=== PATIENT | female | born 1990 | race Two or more races ===

== ENCOUNTER 2021-04-09 08:44 | Emergency (ER) | payer OTHER ==
[~2021-04-09] VITALS: Ht 152.4 cm; Wt 112.9 kg
[2021-04-09] MEDS ORDERED: SYNTHROID125 MCG PO (08:53)
[2021-04-09] MEDS ORDERED: CYTOMEL5 MCG (08:54)
== END 2021-04-09 16:22 | disposition home or self-care (01) ==
LOC: ER 08:44
DX: S93.491A Sprain of other ligament of right ankle, initial encounter (principal); X50.1XXA Overexertion from prolonged static or awkward postures, initial encounter; Y93.89 Activity, other specified; Y92.89 Other specified places as the place of occurrence of the external cause; Y99.8 Other external cause status

== ENCOUNTER 2021-09-18 14:03 | Outpatient (CLI) | payer OTHER ==
[~2021-09-18 14:03] MED LIST: CYTOMEL5 MCG; SYNTHROID125 MCG PO
== END 2021-09-18 14:14 | disposition home or self-care (01) ==
LOC: RAD 14:03
PROVIDERS: ATTEND Orthopaedic Surgery
DX: M25.521 Pain in right elbow (principal)

== ENCOUNTER 2021-12-12 05:57 | Day surgery (SDC) | payer OTHER ==
[2021-12-12] MEDS ORDERED: NEXIUM 24HR20 MG PO (09:06)
== END 2021-12-12 10:30 | disposition home or self-care (01) ==
LOC: AMB-ENDOS 05:57
PROVIDERS: ATTEND Surgery
DX: K20.80 Other esophagitis without bleeding (principal); Z20.822 Contact with and (suspected) exposure to COVID-19; I10 Essential (primary) hypertension; J45.909 Unspecified asthma, uncomplicated; E03.9 Hypothyroidism, unspecified

== ENCOUNTER 2023-08-26 09:47 | Day surgery (SDC) | payer OTHER ==
[~2023-08-26 09:47] MED LIST changes: +NEXIUM 24HR20 MG PO; +SYNTHROID175 MCG PO
[2023-08-26] MEDS ORDERED: PERCOCET 5-3251 EACH PO (15:50)
[2023-08-26] MEDS ORDERED: MIRALAX510 GM PO (15:51)
[2023-08-26] MEDS ORDERED: NEURONTIN600 M1 PO (15:51)
[2023-08-26] MEDS ORDERED: TYLENOL325 MG PO (15:51)
[2023-08-26] MEDS ORDERED: CIPRO500 MG PO (15:52)
== END 2023-08-26 18:05 | disposition home or self-care (01) ==
LOC: CIR.AMB 09:47
PROVIDERS: ATTEND Surgery
DX: K80.10 Calculus of gallbladder with chronic cholecystitis without obstruction (principal); K42.9 Umbilical hernia without obstruction or gangrene; K43.2 Incisional hernia without obstruction or gangrene; Z91.013 Allergy to seafood; Z91.012 Allergy to eggs